=== PATIENT | female | born 1950 | race Two or more races ===

== ENCOUNTER 2021-07-16 12:57 | Outpatient (CLI) | payer OTHER ==
[~2021-07-16 12:57] MED LIST: AMRIX15 MG; LEVOXYL25 MCG
== END 2021-07-16 13:02 | disposition home or self-care (01) ==
LOC: MRI 12:57
PROVIDERS: ATTEND Orthopaedic Surgery
DX: M25.561 Pain in right knee (principal)
CPT/HCPCS: 73721

== ENCOUNTER → 2021-12-25 | Emergency (ER) | payer OTHER ==
[~2021-12-25] VITALS: Ht 154.9 cm; Wt 64.9 kg
[~2021-12-25] MED LIST changes: +COZAAR100 MG PO; +LANTUS SOL100 UNIT/1 SQ; +NEURONTIN300 MG PO; +SYNTHROID75 MCG PO; +XANAX1 MG PO
== END | disposition home or self-care (01) ==
LOC: ER 08:44
DX: U07.1 COVID-19 (principal)

== ENCOUNTER 2023-01-26 17:31 | Emergency (ER) | payer OTHER ==
[~2023-01-26] VITALS: Ht 152.4 cm; Wt 59.9 kg
[2023-01-26] MEDS ORDERED: LOSARTAN POTASS50 MG PO (17:53)
[2023-01-26] MEDS ORDERED: GLIMEPIRIDE4 MG PO (17:53)
[2023-01-26] MEDS ORDERED: XARELTO10 MG PO (17:54)
== END 2023-01-26 20:23 | disposition home or self-care (01) ==
LOC: ER 17:31
DX: U07.1 COVID-19 (principal); K59.01 Slow transit constipation